=== PATIENT | female | born 1990 | race Caucasian/White ===

== ENCOUNTER 2023-10-03 14:48 | Outpatient (RCR) | payer OTHER, SELFPAY ==
--- NOTE | 2023-10-03 15:53 | PTOPEVAL1 ---
Assessment and note entered by Mickey Quick Evaluation Information Assessment Status Evaluation Diagnosis closed fx of the distal end of the left fibula Onset 08/26/23 Subjective Information Pt. reports that she broke her ankle on 08/26/23 while playing tag with some students. She reports that she stayed home for several days, but pain increased. Went to the ER 5 days later and xray revealed an ankle fx. She was placed in a splint and the next week she saw the ortho. She reports that she has been in a boot for 1 month. She reports she was informed by her doctor that she can wean from the boot. She reports she has attempted to walk without the boot, with just more apprehension noted. She states that she has 7 children and was very active prior to the incident . She states that she has no pain at rest. She reports that her goal is to be able to get rid of her boot and return to walking normal. Reported Pain Level Pain Score 0: Self Report Assessment PT Clinical Summary Pt. is a 33 year old female who enters the clinic post left ankle fx. She presents with impaired left ankle ROM, impaired strength, edema, pain, impaired gait and functional decline. Continued skilled PT is indicated in order to improve these areas to allow the pt. to achieve her goal of being able to walk normally without her boot. Plan of Care Interventions Electrical Stimulation,Gait Training,Hot Pack/Cold Pack,Intermittent Compression,Manual Therapy, Neuro Re-education,Patient/Caregiver Educati, Therapeutic Activities,Therapeutic Exercise PT Services Indicated Yes Treatment Frequency and 2x/week x 10 visits Duration These treatments will address the objective and functional deficits as defined above. The patient will be advanced safely and appropriately in order for the patient to progress towards his/her prior level of function. Additional exercises will be introduced and as well as a comprehensive home exercise program upon discharge, if needed, ?to ensure carryover of functional gains achieved in the clinic. This treatment plan has been reviewed and agreement upon by the patient.
--- NOTE | 2023-10-03 15:53 | OPREHPOC ---
Outpatient Therapy Plan of Care This is a Multidisciplinary Plan of Care that may contain components documented by all disciplines (PT, OT, and ST.) PT Problem 1 PT Problem #1 Knowledge Deficit PT Goal 1 Goal Independent with a HEP addressing strength and ROM Target Visit 2 PT Problem 2 PT Problem #2 Edema PT Goal 1 Goal Decrease figure 8 girth measurements 45 cm on the left Target Visit 10 PT Problem 3 PT Problem #3 Impaired Range of Motion PT Goal 1 Goal -Pt. will achieve 15 degrees active DF, 60 degrees active PF, 40 degrees active inversion and 15 degrees active eversion of the left ankle to normalize gait and stair performance PT Problem 4 PT Problem #4 Impaired Strength PT Goal 1 Goal Pt. will be able to complete 10 single limb heel raises on the left Target Visit 10
--- NOTE | 2023-10-28 16:26 | PCPTNOTE ---
Patient cancelled session today.
--- NOTE | 2023-11-11 17:05 | OPREHPOC ---
Outpatient Therapy Plan of Care This is a Multidisciplinary Plan of Care that may contain components documented by all disciplines (PT, OT, and ST.) PT Problem 1 PT Problem #1 Knowledge Deficit PT Goal 1 Goal Independent with a HEP addressing strength and ROM Target Visit 2 Progress Met PT Problem 2 PT Problem #2 Edema PT Goal 1 Goal Decrease figure 8 girth measurements 45 cm on the left Target Visit 10 PT Problem 3 PT Problem #3 Impaired Range of Motion PT Goal 1 Goal -Pt. will achieve 15 degrees active DF, 60 degrees active PF, 40 degrees active inversion and 15 degrees active eversion of the left ankle to normalize gait and stair performance Target Visit 16 Progress Not Met Comment continue PT Problem 4 PT Problem #4 Impaired Strength PT Goal 1 Goal Pt. will be able to complete 10 single limb heel raises on the left Target Visit 10 Progress Met PT Goal 2 Goal 1. improve L ankle strength to 5/5 Target Visit 16 PT Problem 5 PT Problem #5 Impaired Functional Mobil PT Goal 1 Goal 1. patient to ambulate with normal gait mechanics 2. patient to ambulate up and down steps with reciprocal mechanics Target Visit 16
--- NOTE | 2023-11-11 17:05 | PTOPREEVAL ---
Assessment and note entered by JT File, PT Evaluation Information Assessment Status Re-evaluation Diagnosis closed fx of the distal end of the left fibula Onset 08/26/23 Subjective Information patient reports she feels Alright today. she reports she is better overall, but still has pain in the L ankle. she reports she has been falling a lot when mis-stepping, and has difficulty walking without directly paying attention to her L ankle. Reported Pain Level Pain Score 4: Self Report Assessment PT Clinical Summary mrs. lorenzana presents to skilled PT today for her 10th skilled PT visit. she continues to have pain in the L ankle, and difficulty with walking and balance. she displays deficits in ambulation mechanics, L ankle strength, and L ankle rom still . she is improved in active ankle DF, ambulation without a boot, and strength of the L ankle since her initial evaluation. continued skilled PT is indicated to further improve patients objective/ functional deficits to return to her prior level functional activity performance and quality of life. Plan of Care Interventions Electrical Stimulation,Gait Training,Hot Pack/Cold Pack,Intermittent Compression,Manual Therapy, Neuro Re-education,Patient/Caregiver Educati, Therapeutic Activities,Therapeutic Exercise PT Services Indicated Yes Treatment Frequency and continue skilled PT 2x weekly for 6 more visits Duration These treatments will address the objective and functional deficits as defined above. The patient will be advanced safely and appropriately in order for the patient to progress towards his/her prior level of function. Additional exercises will be introduced and as well as a comprehensive home exercise program upon discharge, if needed, ?to ensure carryover of functional gains achieved in the clinic. This treatment plan has been reviewed and agreement upon by the patient.
== END 2023-12-05 08:33 | disposition home or self-care (01) ==
LOC: CHSPT 14:48
DX: S82.832D Other fracture of upper and lower end of left fibula, subsequent encounter for closed fracture with routine healing (principal)
CPT/HCPCS: 97014; 97016; 97110; 97112; 97161; G0283